=== PATIENT | female | born 1975 ===

== ENCOUNTER 2024-11-11 17:27 | Emergency (ER) | payer MEDICAID ==
[~2024-11-11] VITALS: Ht 165.1 cm; Wt 130.0 kg
[2024-11-11 18:01] LABS: BASOPHILS 0.5 % (0-2); EOSINOPHILS 2.2 % (0-6); HEMATOCRIT 39.4 % (35.0-50.0); HEMOGLOBIN 13.3 g/dL (12.0-18.0); LYMPHOCYTES 18.9 % (24-44); MCH 27.1 (27-36); MCHC 33.8 g/dl (30-36); MONOCYTES 6.8 % (0-12); NEUTROPHILS 71.6 % (39-80); PLATELET COUNT 269 K/uL (140-440); RBC 4.92 M/ul (4.3-5.7); RDW 16.6 (10.5-15.0)
[2024-11-11 18:25] LABS: ACETAMINOPHEN 0 ug/mL (10-30); ALBUMIN 3.9 g/dL (3.4-5.0); ALBUMIN/GLOBULIN RATIO 1.11 (1.1-2.4); ALCOHOL, MEDICAL 3 ng/dL (<3); ALKALINE PHOSPHATASE 73 U/L (46-116); ALT (SGPT) 23 U/L (14-59); ANION GAP 16.8 (7-21); AST (SGOT) 21 U/L (15-37); BILIRUBIN, TOTAL 0.7 mg/dL (0.2-1.0); BUN/CREATININE RATIO 11.81 (6.0-28.6); CALCIUM 8.7 mg/dL (8.5-10.1); CARBON DIOXIDE 21 mmol/L (21-32); CHLORIDE 104 mmol/L (98-107); CREATININE, SERUM 1.27 mg/dL (0.55-1.02); GLOMERULAR FILTRATION RATE,EST 53 mL/min (>60); POTASSIUM 2.8 mmol/L (3.5-5.1); PROTEIN, TOTAL 7.4 g/dL (6.4-8.2); SALICYLATE 0.5 mg/dL (2.8-20.0); UREA NITROGEN 15 mg/dL (7-18)
[2024-11-11] MEDS ORDERED: POTASSIUM CHLORIDE 10 MEQ TABCR PO ONE (20:15)
[2024-11-11 20:42] LABS: BILIRUBIN, URINE NEGATIVE (negative); BLOOD/HGB, URINE NEGATIVE (Negative); KETONE, URINE SMALL (Negative); LEUK ESTERASE, URINE SMALL (negative); NITRITE, URINE NEGATIVE (negative)
[2024-11-11 20:45] LABS: BACTERIA, URINE NONE SEEN /hpf (negative); CASTS, URINE HYALINE 1+ \\lpf; COLLECTION TYPE, URINE CLEAN CATCH; CRYSTALS, URINE NONE SEEN (0-1+); EPITHELIAL CELLS, URINE SQUAMOUS 1+ /lpf (0-1+); RED BLOOD CELLS, URINE 0-1 /hpf (0-5); REFLEX CULTURE, URINE No (No)
[2024-11-11 21:01] LABS: AMPHETAMINES, URINE NEGATIVE (NEGATIVE); BENZODIAZEPINE, URINE NEGATIVE (NEGATIVE); BUPRENORPHINE, URINE NEGATIVE (NEGATIVE); CANNABINOID, URINE NEGATIVE (NEGATIVE); COCAINE, URINE NEGATIVE (NEGATIVE); ECSTASY, URINE NEGATIVE (NEGATIVE); FENTANYL, URINE NEGATIVE (NEGATIVE); METHADONE, URINE NEGATIVE (NEGATIVE); OPIATES, URINE NEGATIVE (NEGATIVE); OXYCODONE, URINE NEGATIVE (NEGATIVE); PHENCYCLIDINE, URINE NEGATIVE (NEGATIVE)
[2024-11-11 21:12] LABS: BARBITURATES, URINE NEGATIVE (NEGATIVE)
[2024-11-11] MEDS ORDERED: OLANZapine 10 MG TAB PO ONE (22:15)
[2024-11-12] MEDS ORDERED: LORazepam 1 MG TAB PO ONE (09:30)
[2024-11-12] MEDS ORDERED: OLANZapine 10 MG TABDIS PO ONE (09:30)
[2024-11-14 15:08] VITALS: BP 153/82
== END 2024-11-14 15:14 ==
LOC: ED 17:27
PROVIDERS: Emergency Medicine
DX: R41.0 Disorientation, unspecified (principal); I10 Essential (primary) hypertension; Z88.1 Allergy status to other antibiotic agents
CPT/HCPCS: 36415; 80053; 80307; 81001; 84443; 84703; 85025; 99285; A9270; A9270-GY; G0480